=== PATIENT | female | born 1930 | race Caucasian/White ===

== ENCOUNTER 2017-03-16 22:54 | Inpatient (IN) | payer MEDICARE ==
[2017-03-16 23:57] LABS: INR-International Normal Ratio 1.9
[2017-03-16 23:58] LABS: Hemoglobin 5.1 g/dL (12.0-16.0); PTT 40.3 SEC (22.9-36.1)
[2017-03-17 00:04] LABS: ALT (SGPT) 360 U/L (8-55); AST (SGOT) 179 U/L (5-34); Albumin 3.4 g/dL (3.4-4.8); Alkaline Phosphatase 94 U/L (40-150); Anion Gap 12 mmol/L (10-20); BUN (Urea Nitrogen) 36 mg/dL (9.8-20.1); Bilirubin, Total 1.3 mg/dL (0.2-1.2); Calc. Creatinine Clearance 0 mL/min (70-130); Calcium 9.4 mg/dL (7.8-10.44); Carbon Dioxide 36 mmol/L (23-31); Chloride 102 mmol/L (98-107); Estimated GFR-MDRD 42; Globulin 3.1 g/dL (2.4-3.5); Glucose 113 mg/dL (83-110); Potassium 3.7 mmol/L (3.5-5.1); Protein, Total 6.5 g/dL (6.0-8.3); Sodium 146 mmol/L (136-145)
[2017-03-17 00:08] LABS: CKMB 1.5 ng/mL (0-6.6); Troponin I 0.116 ng/mL (< 0.028)
[2017-03-17 00:18] LABS: Anisocytosis SLIGHT = 6-15 cells (100X) (0-5/hpf); Band 1 % (5-11); Elliptocytes SLIGHT = 2-5 cells (100X) (0-1/hpf); Hypochromia MODERATE=16-30 cells (100X) (0-5/hpf); Lymphocytes 29 % (21-51); MDiff Complete? YES; Mean Corpuscular HGB CONC 25.1 g/dL (32.0-36.0); Mean Corpuscular Hemoglobin 16.7 pg (27.0-31.0); Mean Corpuscular Volume 66.5 fl (81.0-99.0); Mean Platelet Volume 8.8 fL (7.4-10.4); Microcytosis MODERATE=15-30 cells (100X) (0-5/hpf); Monocytes 19 % (0-10); Neutrophil 51 % (42-75); Nucleated RBC 1 % (0); PLT Morphology Comment Appears Adequate; Platelet Count 232 thou/uL (130-400); RBC Distribution Width 19.8 % (11.5-14.5); Red Blood Cell (RBC) Count 3.03 mill/uL (4.20-5.40); Reflex for Review?? YES; White Blood Cell (WBC) Count 4.1 thou/uL (4.8-10.8)
[2017-03-17 00:39] LABS: CK (CPK) 35 U/L (29-168); Lipase 66 U/L (8-78)
[2017-03-17] MEDS ORDERED: Pantoprazole 40 MG VIAL ONE (00:55)
[2017-03-17 04:28] LABS: Bilirubin Negative (Negative); Blood, Urine Negative (Negative); Clarity CLEAR (Clear); Glucose, Urine (Dipstick) Negative (Negative); Leukocyte Small (Negative); Nitrite Negative (Negative); Protein, Urine (Dipstick) Negative (Neg-Trace); Specific Gravity, Urine 1.011 (1.002-1.036); Urobilinogen 0.2 mg/dL (0.2-1.0)
[2017-03-17 04:30] LABS: Bacteria/HPF None Seen HPF (None Seen); Hyaline Casts/LPF 0-3 HYALINE CAST LPF (0-3 Hyaline); Pathc Cast-AUWi Flag 0.27 (0-2.49); RBC/HPF None Seen HPF (0-3); Squamous Epithelial None Seen HPF (0-3)
[2017-03-17 05:27] LABS: Reticulocyte Count 0.9 % (0.5-1.5)
[2017-03-17] MEDS ORDERED: Oseltamivir 75 MG CAP PO SCH (07:30)
[2017-03-17] MEDS ORDERED: Potassium Chloride 20 MEQ TAB PO SCH (07:30)
[2017-03-17] MEDS ORDERED: Furosemide 40 MG TAB PO SCH (07:30)
[2017-03-17] MEDS ORDERED: Loratadine 10 MG TAB PO SCH (07:30)
[2017-03-17] MEDS ORDERED: Atorvastatin Calcium 20 MG TAB PO SCH (07:30)
[2017-03-17] MEDS ORDERED: Digoxin 0.125 MG TAB PO SCH (07:30)
[2017-03-17 07:50] LABS: Troponin I 0.117 ng/mL (< 0.028)
[2017-03-17] MEDS ORDERED: Acetaminophen 650 MG Suppository PR PRN (08:27)
[2017-03-17] MEDS ORDERED: Acetaminophen 325 MG TAB PO PRN (08:27)
[2017-03-17 09:23] LABS: Iron 9 ug/dL (50-170); Iron Binding Capacity, Total 328 mcg/dL (265-497)
--- NOTE | 2017-03-17 09:38 | HP ---
PRIMARY CARE PHYSICIAN: Tim Carpenter M.D. CHIEF COMPLAINT: Low hemoglobin. HISTORY OF PRESENT ILLNESS: Ms. Sheikh is a pleasant 86-year-old lady who was seen at [facility] after she was sent here from [facility]. She is able to provide some history. Collateral history was obtained from review of medical records as well as discussion with emergency room physician. She is currently being treated for influenza B with Tamiflu, since 03/12/2017. She had blood work do ne on 03/15/2017, which showed hemoglobin of 4.4. She reports generalized weakness. She denies any blood in her ostomy bag. She denies any fevers or chills. She denies any chest pain. She does report shortness of breath with exertion. She denies a ny abdominal pain. She denies any nausea or vomiting. She also reports occasional cough that is nonproductive. REVIEW OF SYSTEMS: The following complete review of systems was negative, unless otherwise mentioned in the HPI or below: Constitutional: Weight loss or gain, ability to conduct usual activities. Skin: Rash, itching. Eyes: Double vision, pain. ENT/Mouth: Nose bleeding, neck stiffness, pain, tenderness. Cardiovascular: Palpitations, dyspnea on exertion, orthopnea. Respiratory: Shortness of breath, wheezing, cough, hemoptysis, fever or night sweats. Gastrointestinal: Poor appetite, abdominal pain, heartburn, nausea, vomiting, constipation, or diarr hea. Genitourinary: Urgency, frequency, dysuria, nocturia. Musculoskeletal: Pain, swelling. Neurologic/Psychiatric: Anxiety, depression. Allergy/Immunologic: Skin rash, bleeding tendency. PAST MEDICAL HISTORY: Significant for chronic atrial fibrillation with sick sinus syndrome on chroni c anticoagulation, status post permanent pacemaker placed in 2005, severe mitral insufficiency, hyper tension, chronic hypokalemia, diet controlled diabetes mellitus type 2, chronic venous insufficiency of the lower extremities, peripheral neuropathy of the lower extremities, left breast cancer status p ost lumpectomy and axillary node dissection, dyslipidemia and perforated sigmoid colon with abscess a nd peritonitis. PAST SURGICAL HISTORY: Significant for permanent pacemaker placement, left breast lumpectomy and axi llary node dissection, exploratory laparotomy with colectomy and colostomy on 09/17/2016. SOCIAL HISTORY: The patient lives at [facility]. She denies tobacco use, alcohol use or recreational drug use. FAMILY HISTORY: She denies any family history of coronary artery disease. CODE STATUS: She has an out of hospital DNR. I confirmed code status and she confirms that she is D NR. ALLERGIES: IODINE and IODINE CONTAINING PRODUCTS. CURRENT MEDICATIONS: Include Tamiflu 75 mg 2 times a day, Claritin 10 mg daily, digoxin 125 mcg ashvin y, Lasix 40 mg daily, Lipitor 20 mg daily, Protonix 40 mg daily, Zoloft 50 mg daily, vitamin p.r.n., Eliquis 2.5 mg 2 times a day, probiotic 2 times a day, potassium chloride 20 mEq 3 times a day, natur al balance ophthalmic eyedrops to each eye 3 times a day. PHYSICAL EXAMINATION: GENERAL: On examination, Ms. Sheikh is awake and alert, not in acute distress. VITAL SIGNS: Blood pressure is 149/63, pulse is 70, she is breathing at rate of 17 and saturating 97 % on 2 liters of oxygen. She is afebrile. EYES: She has purulent discharge in both eyes, worse on the right, with matting of the eyelashes and sticking of the eyelids. She has bilateral conjunctival erythema. Visual acuity is preserved in gogo th sides. ENT: Moist mucosal membranes. No oropharyngeal erythema or exudates. NECK: Supple, nontender, normal range of movement. Trachea is midline. RESPIRATORY: Accessory muscles of breathing are not active. Chest wall movements are symmetric bila terally. LUNGS: Clear to auscultation without wheeze, rhonchi or crepitations. CARDIOVASCULAR: S1 and S2 are heard, regular. Peripheral pulses palpable. No carotid bruit, no per icardial rub. ABDOMEN: Soft, nontender, bowel sounds heard, she has a left-sided colostomy. She also has a midlin e abdominal scar. No hepatomegaly, no splenomegaly. NEUROLOGIC: Cranial nerves II-XII are intact. Deep tendon reflexes are 2+. MUSCULOSKELETAL: Power is 5/5 in all 4 extremities. SKIN: No rashes or subcutaneous nodules. She has edema of both lower extremities. PSYCHIATRIC: Normal mood, normal affect, patient is oriented to person, place, month and year. LYMPHATIC: No cervical lymphadenopathy. IMAGING DATA AND LABORATORY DATA: Ms. Sheikh's labs and investigations were reviewed. She had a 12-lead electrocardiogram, which shows electronic ventricular paced rhythm. Laboratory investigation s show white count of 4100, hemoglobin 5.1, platelet count 232,000, INR 1.9, sodium 146, normal potas sium of 3.7, elevated blood urea nitrogen of 36, elevated creatinine of 1.21, last known creatinine 0 .92 on 11/23/2016, elevated total bilirubin of 1.3, elevated AST of 179, elevated ALT of 360, normal alkaline phosphatase, normal creatinine kinase, indeterminate troponin I of 0.117, elevated BNP of 78 7 and normal lipase. Urinalysis is positive for a small amount of leukocyte esterase. ASSESSMENT AND PLAN: Ms. Sheikh is a pleasant 36-year-old lady who was seen at [facility] on 03/17/2017. Her problem list includes: 1. Symptomatic anemia: She has symptomatic microcytic anemia. The etiology is unclear at this time . She had a negative stool occult blood test in the emergency room. She also denies seeing any bloo d in the ostomy bag. Even though she is on anticoagulation, it is unclear whether this is gastrointe stinal bleed event. GI Service has been consulted. We will continue her Protonix for now. She is a lso recovering from influenza and the anemia and leukopenia could be sequelae of influenza infection. We will check iron studies as well as vitamin B12 and folate levels, since RDW is elevated as well. We will also check TSH. The patient is receiving transfusion as ordered by emergency room physicia n. 2. Acute kidney injury: Likely prerenal. We will provide gentle hydration and reassess. 3. Conjunctivitis: Bilateral. Vision is preserved. We will start patient on Neosporin eye drops. 4. Chronic obstructive pulmonary disease: Stable. 5. Chronic atrial fibrillation, status post permanent pacemaker placement. The patient is currently in a ventricular paced rhythm. She appears to be stable from that point of view. Apixaban is on ho ld, given her anemia at this time. 6. Mitral regurgitation, status post mitral valve repair in 2010, stable. 7. Hypertension: Monitor vital signs, titrate antihypertensives as needed. 8. Chronic hypokalemia: Check electrolytes, replace potassium as needed. Many thanks for allowing me to participate in your patient's care. Please feel free to contact me wi th any questions or concerns. LEVEL OF RISK: Moderate. LEVEL OF COMPLEXITY: Moderate.
[2017-03-17 09:51] LABS: Ferritin 20.45 ng/mL (10-291); Thyroid Stimulating Hormone 4.1285 uIU/mL (0.35-4.94)
--- NOTE | 2017-03-17 09:56 | RAD ---
SINGLE VIEW OF THE CHEST: COMPARISON: 11/23/16. HISTORY: Pulmonary edema. FINDINGS: A single view of the chest shows an enlarged cardiomediastinal silhouette. The pacemaker is unchange d in position. The patient is status post sternotomy. There is a small left pleural effusion. Incr eased interstitial lung markings are present. There is no evidence of consolidation. IMPRESSION: Cardiomegaly and small left pleural effusion. POS: [facility]
[2017-03-17] MEDS ORDERED: Neosporin Ophth Soln 10 ml Bottle L EYE SCH (13:00)
[2017-03-17 13:15] LABS: Hemoglobin 7.1 g/dL (12.0-16.0)
[2017-03-17 13:25] VITALS: BMI 22.0
[2017-03-17] MEDS: Neosporin Ophth Soln 10 ml Bottle R EYE SCH ×2 (13:50→13:51)
[2017-03-17] MEDS: NS 0.9% w/ 40 MEQ KCL 1,000 ML IV SCH (13:59)
[2017-03-17] MEDS: Ciprofloxacin 0.3% Ophth Drops 2.5 ml Bottle L EYE SCH ×6 (14:03→23:37)
[2017-03-17] MEDS: Ciprofloxacin 0.3% Ophth Drops 2.5 ml Bottle R EYE SCH ×6 (14:07→23:38)
--- NOTE | 2017-03-17 18:55 | CON ---
DATE OF CONSULTATION: 03/17/2017 REASON FOR CONSULTATION: Anemia. HISTORY OF PRESENT ILLNESS: Ms. Sheikh is an 86-year-old female who was admitted to the hospital from emergency room yesterday as she had outside lab with hemoglobin of 4.4. The patient was apparen tly in the [facility] at [place] when treated for the flu. The patient does not give much of the history. She is pretty sleepy right now. She denies any pain, melena, hematochezia or hematemes is. I called the patient's durable power of associate attorney, Kristen at [phone] just got message in answ [employer]. The nurses note the family is here earlier but they are going to return tomorrow. A pparently there has been no overt obvious bleeding. The patient, however, is on Eliquis. The patien t reports she does have a colostomy bag. The patient reports that this was placed in August at [facility]. She does not recall if she has had endoscopy. She is fairly sleepy and has difficulty staying awake. Further questions asked about NSAID use, iron use, prior transfusions ess entially when unanswered she could not recall. I was not able to complete a good history. She reall y could not recall most events. Presently, she is without pain. The nurses note she has been in no distress. REVIEW OF SYSTEMS: Not able to be obtained that from the ER was reviewed. PAST MEDICAL HISTORY: Chronic muscle weakness, venous insufficiency, colostomy.
--- NOTE | 2017-03-17 23:39 | CON ---
DATE OF CONSULTATION: 03/17/2017 REASON FOR CONSULTATION: Anemia, microcytic with iron deficiency. HISTORY OF PRESENT ILLNESS: Ms. Sheikh is an 86-year-old female who was transferred from the [facility] for a hemoglobin of 4. Apparently, she was recently tested positive fluid at a alf in [place] and they decided to treat her empirically. Talking with her [id number], she wa s pretty ill but has gotten better. Today, when I have seen her in the room, she has received some b lood. In the emergency room, she was transfused with 2 units of blood today and her hemoglobin had i ncreased from 5.1-7.1. The family notes there has been no history of overt bleeding at the nursing h ome and the patient denies any bleeding, although she is very somnolent and difficult to arouse. The patient's daughter notes that a few months ago, there were issues with vaginal bleeding and they wer e going to take her to the stave bolt equalizer for evaluation, but because of her frailty, the stave bolt equalizer could not get her on the table to perform a pelvic exam. Ultimately, it was decided that with her po or functional status, even if something significant was found, she would not be a candidate for surge ry and no exam was performed. Ultimately, she seems lately not to have any vaginal bleeding. She aranda s not had any melena or hematochezia as far as the jduejimg-fj-rul knows. She does not know about re cent problems with anemia. She does state that in August, she had a perforated colon, ended up having surgery at the [facility] with colostomy. Reviewing records from this hospital i n June, her hemoglobin was 13, in September it was 7.6, and looking through to October, it seems to hav e been running around 9. The patient's [id number] states that after that surgery in October, she really never got back to normal. She has been frail. She feels like this patient is giving up. She does not eat much and she continues to lose weight, has anorexia and refuses to eat often. PAST MEDICAL HISTORY: Chronic atrial fibrillation, sick sinus syndrome on chronic anticoagulation fo r about 10 years, pacemaker in 2005, mitral insufficiency, hypertension, chronic hypokalemia, type 2 diabetes, chronic venous insufficiency, peripheral neuropathy, prior breast cancer with lymph node di ssection and lumpectomy, dyslipidemia, perforated sigmoid colon with abscess and peritonitis just thi s past summer. Dr. Pulido is her senior health consultant. Dr. Carpenter is her primary physician. She has had colonoscopies i n the past at [facility] but had not had one in a very long time. Her [id number] recalls jasmin nging her, does not recall having any issues at that time. She does not recall her having ulcers or bleeding in the past. PAST SURGICAL HISTORY: Includes also a pacemaker placement, lumpectomy, and also the patient's daugh ter-in-law states that she had an aortic valve repair of some sort but not replacement. SOCIAL HISTORY: The patient lives in [facility]. She denies tobacco use, alcohol or d rug use. REVIEW OF SYSTEMS: Unable to be obtained from the patient. ALLERGIES: IODINE CONTAINING PRODUCTS. MEDICATIONS AT HOME: Terbinafine, sertraline, Florastor, K-Dur, Protonix, ranitidine, Lasix, Lanoxin , atorvastatin, Eliquis 2.5 mg p.o. b.i.d., acetaminophen, and apparently, she is finishing some Jacqueline flu. PRESENT MEDICATIONS: Tylenol, Cipro eyedrops, normal saline an hour. PHYSICAL EXAMINATION: VITAL SIGNS: Temperature 97, pulse 70, respirations 18, her O2 sat is 95% on 2 liters. GENERAL: The patient is somnolent. She is sleeping while I walked into the room and she is arousabl e. She tends to fall back to asleep. LUNGS: Clear with decreased breath sounds because she does not take deep breaths. HEART: Regular rate and rhythm, irregular at times. ABDOMEN: Soft and nontender without any palpable hepatosplenomegaly. There is a colostomy in the le ft lower quadrant without any evidence of blood. LABORATORY DATA: Stool was Hemoccult negative. MCV was 66, other labs per HPI, B12 was 2000. BUN i s 36, creatinine is 1.2, sodium 146, potassium 3.7, AST and ALT were 79 360. Total bilirubin is 1.3. Labs from October showed normal LFTs. ASSESSMENT AND PLAN: 1. Severe microcytic anemia on presentation with heme-negative stool. No signs of bleeding, which s he is on chronic anticoagulation. Per the family, there is a history of vaginal bleeding a few month s ago, this was evaluated by Gynecology. Ultimately, it was decided to do nothing not even exam vincenzo use it was felt that even if something was found surgically to be treated nothing could be done. The re have been no overt signs of gastrointestinal bleeding at this time. In talking with the patient's family, they are unsure if they even want to proceed with invasive studies and they are going to bernardino k about that and get back to us tomorrow. 2. History of colostomy secondary to perforation. 3. History of chronic anticoagulation. 4. The patient has mildly elevated liver function tests which were new compared to previous labs in October. We will go ahead and repeat those tomorrow. At this time, we will hold off on scheduling any intervention. I would go ahead and place her on her proton pump inhibitor, which has not been do ne at this point in time and we will reevaluate her tomorrow and see what the family has decided.
[2017-03-18] MEDS: Ciprofloxacin 0.3% Ophth Drops 2.5 ml Bottle L EYE SCH ×10 (02:10→18:01)
[2017-03-18] MEDS: Ciprofloxacin 0.3% Ophth Drops 2.5 ml Bottle R EYE SCH ×10 (02:11→18:01)
[2017-03-18 06:05] LABS: Anion Gap 12 mmol/L (10-20); BUN (Urea Nitrogen) 24 mg/dL (9.8-20.1); Calc. Creatinine Clearance 44 mL/min (70-130); Calcium 9.1 mg/dL (7.8-10.44); Carbon Dioxide 35 mmol/L (23-31); Chloride 104 mmol/L (98-107); Estimated GFR-MDRD 55; Glucose 78 mg/dL (83-110); Potassium 3.6 mmol/L (3.5-5.1); Sodium 147 mmol/L (136-145)
[2017-03-18 07:37] LABS: Acanthocytes SLIGHT = 1-5 cells (100X) (None Seen); Band 1 % (5-11); Eosinophils 1 % (0-10); Hypochromia MARKED = >30 cells (100X) (0-5/hpf); Lymphocytes 39 % (21-51); MDiff Complete? YES; Mean Corpuscular HGB CONC 26.9 g/dL (32.0-36.0); Mean Corpuscular Hemoglobin 19.7 pg (27.0-31.0); Mean Corpuscular Volume 73.2 fl (81.0-99.0); Mean Platelet Volume 10.1 fL (7.4-10.4); Microcytosis MODERATE=15-30 cells (100X) (0-5/hpf); Monocytes 15 % (0-10); Neutrophil 43 % (42-75); Nucleated RBC 2 % (0); PLT Morphology Comment Appears Adequate; Platelet Count 177 thou/uL (130-400); Polychromasia MODERATE = 3-4 cells (100X) (0-2/hpf); RBC Distribution Width 22.8 % (11.5-14.5); Reactive Lymphocytes 1 % (0-10); Red Blood Cell (RBC) Count 3.48 mill/uL (4.20-5.40); Schistocytes SLIGHT = 2-5 cells (100X) (0-1/hpf); White Blood Cell (WBC) Count 4.1 thou/uL (4.8-10.8)
[2017-03-18] MEDS ORDERED: Acetaminophen 325 MG TAB PO PRN (08:09)
[2017-03-18] MEDS ORDERED: Artificial Tears 18 DROP/0.9 ML EA EYE PRN (08:45)
[2017-03-18] MEDS ORDERED: Albuterol Sulfate 1.25 MG/3 ML NEB NEB PRN (08:45)
[2017-03-18 08:46] LABS: ALT (SGPT) 260 U/L (8-55); AST (SGOT) 127 U/L (5-34); Alkaline Phosphatase 80 U/L (40-150); Bilirubin, Direct 1.1 mg/dL (0.1-0.3); Bilirubin, Total 1.6 mg/dL (0.2-1.2); Protein, Total 5.6 g/dL (6.0-8.3)
[2017-03-18] MEDS ORDERED: Pantoprazole 40 MG VIAL IVP SCH (09:00)
[2017-03-18] MEDS: NS 0.9% w/ 40 MEQ KCL 1,000 ML IV SCH (09:02)
[2017-03-18] MEDS: Digoxin 0.125 MG TAB PO SCH (09:04)
[2017-03-18] MEDS: Furosemide 40 MG TAB PO SCH ×2 (09:05→20:21)
[2017-03-18] MEDS: Loratadine 10 MG TAB PO SCH (09:06)
[2017-03-18] MEDS: Potassium Chloride 20 MEQ TAB PO SCH ×3 (09:06→20:21)
[2017-03-18] MEDS: Saccharomyces boulardii 250 MG CAP PO SCH ×2 (09:07→20:20)
--- NOTE | 2017-03-18 13:07 | PRG ---
DATE OF SERVICE: 03/18/2017 HISTORY OF PRESENT ILLNESS: Ms. Sheikh is eating breakfast. Nurses note she has had no overt ble eding. The family came by and confirmed to the staff that they have decided not to proceed with endo scopy at this time and want to just discuss possibly stopping her anticoagulation. The patient is wi thout complaints. She is a little bit confused with some mild dementia. MEDICATONS: She continues Protonix. PHYSICAL EXAMINATION: VITAL SIGNS: Temperature is 97, pulse 69, blood pressure 143/66. ABDOMEN: Soft, nontender. LUNGS: Clear. She is eating breakfast. She has a colostomy with no blood. LABORATORY STUDIES: White count 4.1, hemoglobin 7, platelet count is 177. Occult blood from 018 was negative. ASSESSMENT: Anemia, microcytic on presentation, this is likely an iron deficiency anemia. She had b een on blood thinner for atrial fibrillation. The patient and family at this point have refused endo scopy for further evaluation. At this time we will sign off. If you need further assistance or care , please do not hesitate to contact me.
--- NOTE | 2017-03-18 16:08 | PDOC.PN ---
- Subjective Encounter Start Date: 03/18/17 Encounter Start Time: 12:30 Pt seen for followup re: anemia. Says she feels better. No chest pain, shortness of breath, fevers or chills. - Objective Resuscitation Status: Resuscitation Status DNR:Do Not Resuscitate MAR Reviewed: Yes Vital Signs & Weight: Vital Signs (12 hours) Temp Pulse Resp BP Pulse Ox 03/18/17 15:42 98.0 F 70 16 121/66 98 03/18/17 12:00 97.6 F 69 18 143/66 H 100 03/18/17 09:04 70 03/18/17 08:00 97.6 F 70 16 133/64 100 03/18/17 04:29 97.7 F 70 16 120/56 L 97 Weight Weight 144 lb 15.263 oz Result Diagrams: 03/18/17 04:45 03/18/17 04:45 EKG Reviewed by me: Yes (Tele: V-paced rhythm) Phys Exam - Physical Examination Constitutional: NAD HEENT: moist MMs Neck: supple Respiratory: clear to auscultation bilateral Cardiovascular: RRR Gastrointestinal: soft Neurological: moves all 4 limbs Psychiatric: normal affect Skin: no rash Dx/Plan (1) Anemia Code(s): D64.9 - ANEMIA, UNSPECIFIED Status: Acute (2) A-fib Code(s): I48.91 - UNSPECIFIED ATRIAL FIBRILLATION Status: Chronic (3) COPD (chronic obstructive pulmonary disease) Status: Chronic - Plan plan discussed w/ family * . family does not want any scope studies. Monitor blood counts. Pt will benefit from resuming anticoagulation in a few days time. May benefit from monitoring blood counts and transfusing pRBCs PRN. PIPE resolved Review of Systems - Review of Systems Respiratory: negative: Cough, Dry, Shortness of Breath, Hemoptysis, SOB with Excertion, Pleuritic Pain, Sputum, Wheezing Cardiovascular: negative: chest pain, palpitations, orthopnea, paroxysmal nocturnal dyspnea, edema, light headedness - Medications/Allergies Allergies/Adverse Reactions: Allergies Allergy/AdvReac Type Severity Reaction Status Date / Time iodine Allergy Rash Verified 09/25/16 15:39 Iodine and Iodide Containing Allergy Verified 09/25/16 15:41 Produc Medications: Current Medications Acetaminophen (Tylenol) 650 mg PO Q4H PRN PRN Reason: Headache/Fever or Pain Acetaminophen (Tylenol) 650 mg AL Q4H PRN PRN Reason: Headache/Fever or Pain Albuterol Sulfate (Albuterol Sulfate) 0.63 mg NEB Q4H PRN PRN Reason: SOB &/or Wheezing Artificial Tears (Tears Naturale) 1 drop EA EYE TIDPRN PRN PRN Reason: DRY EYES Atorvastatin Calcium (Lipitor) 20 mg PO HS [facility] Ciprofloxacin (Ciloxan 0.3% Ophth Soln) 1 drop L EYE Q2HR [facility] Last Admin: 03/18/17 15:11 Dose: 1 drop Ciprofloxacin (Ciloxan 0.3% Ophth Soln) 1 drop R EYE Q2HR [facility] Last Admin: 03/18/17 15:11 Dose: 1 drop Digoxin (Lanoxin) 0.125 mg PO DAILY [facility] Last Admin: 03/18/17 09:04 Dose: 0.125 mg Furosemide (Lasix) 40 mg PO BID [facility] Last Admin: 03/18/17 09:05 Dose: 40 mg Potassium Chloride/Sodium Chloride (Ns 0.9% W/ 40 Meq Kcl) 1,000 mls @ 50 mls/ hr IV .Q20H [facility] Last Admin: 03/18/17 09:02 Dose: 1,000 mls Loratadine (Claritin) 10 mg PO DAILY [facility] Last Admin: 03/18/17 09:06 Dose: 10 mg Pantoprazole Sodium (Protonix) 40 mg PO DAILY [facility] Last Admin: 03/18/17 09:06 Dose: 40 mg Potassium Chloride (K-Dur) 20 meq PO TID [facility] Last Admin: 03/18/17 15:11 Dose: 20 meq Saccharomyces Boulardii (Florastor) 250 mg PO BID [facility] Last Admin: 03/18/17 09:07 Dose: 250 mg Sertraline HCl (Zoloft) 50 mg PO DAILY [facility] Last Admin: 03/18/17 09:07 Dose: 50 mg Terbinafine HCl (Lamisil At 1% Cream) 0 gm TOP DAILY [facility] Last Admin: 03/18/17 10:54 Dose: Not Given
[2017-03-18] MEDS: Atorvastatin Calcium 20 MG TAB PO SCH (20:21)
[2017-03-18] MEDS: CIPROFLOXACIN 0.3% FS SCH ×3 (20:21→23:53)
[2017-03-19] MEDS: CIPROFLOXACIN 0.3% FS SCH ×11 (02:13→22:21)
[2017-03-19 05:26] LABS: Anion Gap 11 mmol/L (10-20); BUN (Urea Nitrogen) 22 mg/dL (9.8-20.1); Calc. Creatinine Clearance 51 mL/min (70-130); Calcium 9.1 mg/dL (7.8-10.44); Carbon Dioxide 35 mmol/L (23-31); Chloride 99 mmol/L (98-107); Estimated GFR-MDRD 64; Glucose 106 mg/dL (83-110); Potassium 3.5 mmol/L (3.5-5.1); Sodium 141 mmol/L (136-145)
[2017-03-19 05:44] LABS: #Eosinphils 0.1 thou/uL (0.0-0.7); #Lymphocytes 1.7 thou/uL (1.20-3.40); #Monocytes 0.7 thou/uL (0.11-0.59); #Neutrophils 1.9 thou/uL (1.40-6.50); %Basophils 0.6 % (0.0-1.0); %Eosinophils 3.1 % (0.0-10.0); %Lymphocytes 37.8 % (21.0-51.0); %Monocytes 14.9 % (0.0-10.0); %Neutrophils 43.6 % (42.0-75.0); Anisocytosis SLIGHT = 6-15 cells (100X) (0-5/hpf); Elliptocytes SLIGHT = 2-5 cells (100X) (0-1/hpf); Hemoglobin 7.1 g/dL (12.0-16.0); Hypochromia MODERATE=16-30 cells (100X) (0-5/hpf); MDiff Complete? YES; Mean Corpuscular HGB CONC 27.7 g/dL (32.0-36.0); Mean Corpuscular Hemoglobin 20.4 pg (27.0-31.0); Mean Corpuscular Volume 73.6 fl (81.0-99.0); Mean Platelet Volume 8.7 fL (7.4-10.4); Microcytosis SLIGHT = 6-15 cells (100X) (0-5/hpf); Platelet Count 171 thou/uL (130-400); RBC Distribution Width 23.8 % (11.5-14.5); Red Blood Cell (RBC) Count 3.46 mill/uL (4.20-5.40); Tear Drops SLIGHT = 2-5 cells (100X) (0-1/hpf); White Blood Cell (WBC) Count 4.4 thou/uL (4.8-10.8)
[2017-03-19] MEDS: NS 0.9% w/ 40 MEQ KCL 1,000 ML IV SCH ×2 (09:03→21:25)
[2017-03-19] MEDS: Furosemide 40 MG TAB PO SCH ×2 (09:05→21:43)
[2017-03-19] MEDS: Digoxin 0.125 MG TAB PO SCH (09:05)
[2017-03-19] MEDS: Loratadine 10 MG TAB PO SCH (09:06)
[2017-03-19] MEDS: Potassium Chloride 20 MEQ TAB PO SCH ×3 (09:07→21:43)
[2017-03-19] MEDS: Saccharomyces boulardii 250 MG CAP PO SCH ×2 (09:08→21:43)
--- NOTE | 2017-03-19 11:29 | PDOC.PN ---
- Subjective Encounter Start Date: 03/19/17 Encounter Start Time: 07:00 Pt seen for followup re: anemia. Denies chest pain, shortness of breath, fevers or chills. - Objective Resuscitation Status: Resuscitation Status DNR:Do Not Resuscitate MAR Reviewed: Yes Vital Signs & Weight: Vital Signs (12 hours) Temp Pulse Resp BP Pulse Ox 03/19/17 09:05 70 03/19/17 08:00 97.6 F 70 18 93 L 03/19/17 07:51 97.6 F 70 18 122/63 93 L 03/19/17 04:00 96.9 F L 70 16 132/60 98 03/18/17 23:40 97.2 F L 70 16 121/57 L 95 Weight Weight 144 lb 15.263 oz Result Diagrams: 03/19/17 04:37 03/19/17 04:37 Additional Labs: Accuchecks 03/19/17 03/19/17 03/18/17 10:54 05:52 21:26 POC Glucose 139 H 123 H 127 H 03/18/17 17:28 POC Glucose 151 H EKG Reviewed by me: Yes (Tele: V-paced) Phys Exam - Physical Examination Constitutional: NAD HEENT: moist MMs Neck: supple Respiratory: clear to auscultation bilateral Cardiovascular: RRR Gastrointestinal: soft Neurological: moves all 4 limbs Psychiatric: normal affect Dx/Plan (1) Anemia Code(s): D64.9 - ANEMIA, UNSPECIFIED Status: Acute (2) A-fib Code(s): I48.91 - UNSPECIFIED ATRIAL FIBRILLATION Status: Chronic (3) COPD (chronic obstructive pulmonary disease) Status: Chronic - Plan PT/OT, out of bed/ambulate * Still needing supplemental oxygen, will try to wean her off * Off of anticoagulation at this time. * Ambulate patient. Review of Systems - Review of Systems Respiratory: negative: Cough, Dry, Shortness of Breath, Hemoptysis, SOB with Excertion, Pleuritic Pain, Sputum, Wheezing Cardiovascular: negative: chest pain, palpitations, orthopnea, paroxysmal nocturnal dyspnea, edema, light headedness - Medications/Allergies Allergies/Adverse Reactions: Allergies Allergy/AdvReac Type Severity Reaction Status Date / Time iodine Allergy Rash Verified 09/25/16 15:39 Iodine and Iodide Containing Allergy Verified 09/25/16 15:41 Produc Medications: Current Medications Acetaminophen (Tylenol) 650 mg PO Q4H PRN PRN Reason: Headache/Fever or Pain Acetaminophen (Tylenol) 650 mg WA Q4H PRN PRN Reason: Headache/Fever or Pain Albuterol Sulfate (Albuterol Sulfate) 0.63 mg NEB Q4H PRN PRN Reason: SOB &/or Wheezing Artificial Tears (Tears Naturale) 1 drop EA EYE TIDPRN PRN PRN Reason: DRY EYES Atorvastatin Calcium (Lipitor) 20 mg PO HS [facility] Last Admin: 03/18/17 20:21 Dose: 20 mg Digoxin (Lanoxin) 0.125 mg PO DAILY [facility] Last Admin: 03/19/17 09:05 Dose: 0.125 mg Furosemide (Lasix) 40 mg PO BID [facility] Last Admin: 03/19/17 09:05 Dose: 40 mg Potassium Chloride/Sodium Chloride (Ns 0.9% W/ 40 Meq Kcl) 1,000 mls @ 50 mls/ hr IV .Q20H [facility] Last Admin: 03/19/17 09:03 Dose: 1,000 mls Loratadine (Claritin) 10 mg PO DAILY [facility] Last Admin: 03/19/17 09:06 Dose: 10 mg Ciprofloxacin 0.3% Ophth Drops 5 Ml Bottle 1 each FS Q2HR [facility] Last Admin: 03/19/17 09:04 Dose: 1 each Pantoprazole Sodium (Protonix) 40 mg PO DAILY [facility] Last Admin: 03/19/17 09:06 Dose: 40 mg Potassium Chloride (K-Dur) 20 meq PO TID [facility] Last Admin: 03/19/17 09:07 Dose: 20 meq Saccharomyces Boulardii (Florastor) 250 mg PO BID [facility] Last Admin: 03/19/17 09:08 Dose: 250 mg Sertraline HCl (Zoloft) 50 mg PO DAILY [facility] Last Admin: 03/19/17 09:08 Dose: 50 mg Terbinafine HCl (Lamisil At 1% Cream) 0 gm TOP DAILY [facility] Last Admin: 03/19/17 10:44 Dose: Not Given
[2017-03-19] MEDS: Atorvastatin Calcium 20 MG TAB PO SCH (21:43)
[2017-03-20] MEDS: CIPROFLOXACIN 0.3% FS SCH ×12 (00:36→22:37)
[2017-03-20] MEDS: NS 0.9% w/ 40 MEQ KCL 1,000 ML IV SCH ×2 (05:50→15:42)
[2017-03-20 06:05] LABS: Anion Gap 12 mmol/L (10-20); BUN (Urea Nitrogen) 16 mg/dL (9.8-20.1); Calc. Creatinine Clearance 50 mL/min (70-130); Carbon Dioxide 36 mmol/L (23-31); Chloride 100 mmol/L (98-107); Estimated GFR-MDRD 66; Glucose 99 mg/dL (83-110); Potassium 3.6 mmol/L (3.5-5.1); Sodium 144 mmol/L (136-145)
[2017-03-20 07:33] LABS: #Eosinphils 0.1 thou/uL (0.0-0.7); #Lymphocytes 1.7 thou/uL (1.20-3.40); #Monocytes 0.7 thou/uL (0.11-0.59); #Neutrophils 2.1 thou/uL (1.40-6.50); %Basophils 0.3 % (0.0-1.0); %Lymphocytes 36.1 % (21.0-51.0); %Monocytes 14.2 % (0.0-10.0); %Neutrophils 46.3 % (42.0-75.0); Bite Cells SLIGHT = 2-5 cells (100X) (0-1/hpf); Hemoglobin 7.3 g/dL (12.0-16.0); Hypochromia MODERATE=16-30 cells (100X) (0-5/hpf); MDiff Complete? YES; Mean Corpuscular HGB CONC 27.5 g/dL (32.0-36.0); Mean Corpuscular Hemoglobin 20.2 pg (27.0-31.0); Mean Corpuscular Volume 73.4 fl (81.0-99.0); Mean Platelet Volume 11.8 fL (7.4-10.4); Microcytosis MODERATE=15-30 cells (100X) (0-5/hpf); Ovalocytes MODERATE= 6-15 cells (100X) (0-1/hpf); PLT Morphology Comment Appears Adequate; Platelet Count 191 thou/uL (130-400); Polychromasia MODERATE = 3-4 cells (100X) (0-2/hpf); RBC Distribution Width 24.9 % (11.5-14.5); Red Blood Cell (RBC) Count 3.59 mill/uL (4.20-5.40); Schistocytes MODERATE= 6-15 cells (100X) (0-1/hpf); White Blood Cell (WBC) Count 4.6 thou/uL (4.8-10.8)
[2017-03-20] MEDS: Digoxin 0.125 MG TAB PO SCH (08:55)
[2017-03-20] MEDS: Saccharomyces boulardii 250 MG CAP PO SCH ×2 (08:55→20:53)
[2017-03-20] MEDS: Loratadine 10 MG TAB PO SCH (08:55)
[2017-03-20] MEDS: Furosemide 40 MG TAB PO SCH ×2 (08:55→20:53)
[2017-03-20] MEDS: Potassium Chloride 20 MEQ TAB PO SCH ×3 (08:56→20:53)
--- NOTE | 2017-03-20 11:41 | PDOC.PN ---
- Subjective Encounter Start Date: 03/20/17 Encounter Start Time: 07:00 Pt seen for followup re: anemia. Denies chest pain or shortness of breath. - Objective Resuscitation Status: Resuscitation Status DNR:Do Not Resuscitate MAR Reviewed: Yes Vital Signs & Weight: Vital Signs (12 hours) Temp Pulse Resp BP Pulse Ox 03/20/17 08:55 69 03/20/17 08:00 98.2 F 69 18 107/55 L 93 L 03/20/17 03:45 98.3 F 70 20 112/63 97 03/19/17 23:43 97.1 F L 70 16 126/63 98 Weight Weight 140 lb 4.8 oz I&O: 03/19/17 03/20/17 03/21/17 06:59 06:59 06:59 Intake Total 1030 Output Total 100 Balance 930 Result Diagrams: 03/20/17 05:37 03/20/17 05:37 Additional Labs: Accuchecks 03/20/17 03/20/17 03/19/17 10:59 05:53 21:29 POC Glucose 141 H 108 121 H 03/19/17 16:18 POC Glucose 114 H EKG Reviewed by me: Yes (Tele: V-paced) Phys Exam - Physical Examination Constitutional: NAD HEENT: moist MMs Neck: supple Respiratory: clear to auscultation bilateral Cardiovascular: RRR Gastrointestinal: soft Neurological: moves all 4 limbs Psychiatric: normal affect Dx/Plan (1) Anemia Code(s): D64.9 - ANEMIA, UNSPECIFIED Status: Acute (2) A-fib Code(s): I48.91 - UNSPECIFIED ATRIAL FIBRILLATION Status: Chronic (3) COPD (chronic obstructive pulmonary disease) Status: Chronic - Plan PT/OT, out of bed/ambulate * . Pt still needing supplemental oxygen. Transfuse pRBC to improve hypoxia. Likely home 24-48 hrs. Plan is to monitor hemoglobin as outpt and transfuse as needed. Pt to resume anticoagulation in a few days. Review of Systems - Review of Systems Cardiovascular: negative: chest pain, palpitations, orthopnea, paroxysmal nocturnal dyspnea, edema, light headedness, other Gastrointestinal: negative: Nausea, Vomiting, Abdominal Pain, Diarrhea, Constipation, Melena, Hematochezia - Medications/Allergies Allergies/Adverse Reactions: Allergies Allergy/AdvReac Type Severity Reaction Status Date / Time iodine Allergy Rash Verified 09/25/16 15:39 Iodine and Iodide Containing Allergy Verified 09/25/16 15:41 Produc Medications: Current Medications Acetaminophen (Tylenol) 650 mg PO Q4H PRN PRN Reason: Headache/Fever or Pain Acetaminophen (Tylenol) 650 mg FL Q4H PRN PRN Reason: Headache/Fever or Pain Albuterol Sulfate (Albuterol Sulfate) 0.63 mg NEB Q4H PRN PRN Reason: SOB &/or Wheezing Artificial Tears (Tears Naturale) 1 drop EA EYE TIDPRN PRN PRN Reason: DRY EYES Atorvastatin Calcium (Lipitor) 20 mg PO HS [facility] Last Admin: 03/19/17 21:43 Dose: 20 mg Digoxin (Lanoxin) 0.125 mg PO DAILY [facility] Last Admin: 03/20/17 08:55 Dose: 0.125 mg Furosemide (Lasix) 40 mg PO BID [facility] Last Admin: 03/20/17 08:55 Dose: 40 mg Potassium Chloride/Sodium Chloride (Ns 0.9% W/ 40 Meq Kcl) 1,000 mls @ 50 mls/ hr IV .Q20H [facility] Last Admin: 03/20/17 05:50 Dose: 1,000 mls Loratadine (Claritin) 10 mg PO DAILY [facility] Last Admin: 03/20/17 08:55 Dose: 10 mg Ciprofloxacin 0.3% Ophth Drops 5 Ml Bottle 1 each FS Q2HR [facility] Last Admin: 03/20/17 11:11 Dose: 1 each Pantoprazole Sodium (Protonix) 40 mg PO DAILY [facility] Last Admin: 03/20/17 08:55 Dose: 40 mg Potassium Chloride (K-Dur) 20 meq PO TID [facility] Last Admin: 03/20/17 08:56 Dose: 20 meq Saccharomyces Boulardii (Florastor) 250 mg PO BID [facility] Last Admin: 03/20/17 08:55 Dose: 250 mg Sertraline HCl (Zoloft) 50 mg PO DAILY [facility] Last Admin: 03/20/17 08:55 Dose: 50 mg Terbinafine HCl (Lamisil At 1% Cream) 0 gm TOP DAILY [facility] Last Admin: 03/20/17 09:01 Dose: Not Given
[2017-03-20] MEDS: Atorvastatin Calcium 20 MG TAB PO SCH (20:53)
[2017-03-21] MEDS: CIPROFLOXACIN 0.3% FS SCH ×8 (00:18→13:39)
[2017-03-21] MEDS: NS 0.9% w/ 40 MEQ KCL 1,000 ML IV SCH (02:37)
[2017-03-21 06:01] LABS: Hemoglobin 8.9 g/dL (12.0-16.0)
[2017-03-21] MEDS: Digoxin 0.125 MG TAB PO SCH (08:35)
[2017-03-21] MEDS: Furosemide 40 MG TAB PO SCH (08:38)
[2017-03-21] MEDS: Potassium Chloride 20 MEQ TAB PO SCH (08:39)
[2017-03-21] MEDS: Loratadine 10 MG TAB PO SCH (08:39)
[2017-03-21] MEDS: Saccharomyces boulardii 250 MG CAP PO SCH (08:39)
--- NOTE | 2017-03-21 09:28 | PDOC.PN ---
- Subjective Encounter Start Date: 03/21/17 Encounter Start Time: 11:30 Subjective: Patient without complaint. No bleeding. No SOB. Weakness better. - Objective Resuscitation Status: Resuscitation Status DNR:Do Not Resuscitate MAR Reviewed: Yes Vital Signs & Weight: Vital Signs (12 hours) Temp Pulse Resp BP Pulse Ox 03/21/17 08:35 70 03/21/17 03:35 98.5 F 69 12 118/59 L 92 L 03/20/17 23:34 98.4 F 70 16 121/57 L 91 L Weight Weight 140 lb 4.8 oz I&O: 03/20/17 03/21/17 03/22/17 06:59 06:59 06:59 Intake Total 2970 Output Total 100 Balance 2870 Result Diagrams: 03/21/17 05:06 03/20/17 05:37 Additional Labs: Accuchecks 03/21/17 03/20/17 03/20/17 05:37 20:44 17:24 POC Glucose 99 120 H 115 H 03/20/17 10:59 POC Glucose 141 H Phys Exam - Physical Examination Constitutional: NAD HEENT: moist MMs Respiratory: no wheezing, no rales, no rhonchi, clear to auscultation bilateral Cardiovascular: no significant murmur, irregular Gastrointestinal: soft, positive bowel sounds Neurological: non-focal, moves all 4 limbs Psychiatric: normal affect, A&O x 3 Dx/Plan (1) Anemia due to acute blood loss Code(s): D62 - ACUTE POSTHEMORRHAGIC ANEMIA Status: Acute Comment: Much improved, stable for d/c, can discuss resuming anticoagulation with PCP or cardiology as outpatient (2) A-fib Code(s): I48.91 - UNSPECIFIED ATRIAL FIBRILLATION Status: Chronic (3) COPD (chronic obstructive pulmonary disease) Status: Chronic - Plan cont current plan of care D/C back to [facility] * . - Discharge Day Encounter end time: 11:45
[2017-03-21 12:00] VITALS: TEMP 97.6
[2017-03-21 12:16] VITALS: BP 136/61
--- NOTE | 2017-03-21 14:21 | DIS ---
PRIMARY CARE PHYSICIAN: Dr. Carpenter. ADMISSION DIAGNOSES: 1. Severe symptomatic anemia, microcytic. 2. Acute kidney injury. 3. Conjunctivitis. 4. Chronic obstructive pulmonary disease. 5. Chronic atrial fibrillation with pacemaker. 6. Hypertension. 7. Chronic hypokalemia. DISCHARGE DIAGNOSES: 1. Anemia due to blood loss, improved after transfusion. 2. Chronic atrial fibrillation. 3. Chronic obstructive pulmonary disease. 4. Conjunctivitis, resolved. 5. Acute kidney injury, resolved. PROCEDURES: None. CONSULTATIONS: Gastroenterology, Dr. Acevedo. PERTINENT LABORATORY DATA: Hemoglobin 4.4 on an outpatient blood work, 5.1 on admission here, up to 8.9 after few transfusions and stable. INR 1.9, creatinine 1.2 at admission, down to 0.82 at dischar . SUMMARY OF HOSPITAL COURSE: This is an 86-year-old lady with a history of chronic atrial fibrillatio n, previously on Coumadin, getting too high, so she was put on a direct oral anticoagulant. She was at [facility] for weakness. After being discharged from the hospital at [facility] ew months ago, she had increasing weakness and she also reported some bilateral eye pain. She had bl ood work done in the emergency room with the above results. She was sent to [facility], had transf usions initially getting up to the low 7, which was stable; however, she was still feeling a little b it weak and short of breath and she was given another transfusion to get her up in to the 8 and she w as asymptomatic after that. The patient did have some drops for her eyes, which improved eye pain an d redness. She had no blood in her ostomy during her hospitalization or any other sources of bleedin g identified. Dr. Acevedo with Gastroenterology was consulted. He did recommend doing an EGD and col onoscopy to look for sources of bleeding. After discussion with her daughter, the patient who stated she is a DNR determined that she did not want to have an endoscopy or further workup for this. Her oral anticoagulants has been discontinued and she is being discharged back to [facility]. She is to follow up with Dr. Carpenter about the possibility of ever restarting anticoagulants. DISCHARGE MANAGEMENT: Discharged back to [facility]. ACTIVITIES: As tolerated. DIET: Healthy heart, low sodium diet. THERAPY: Occupational and physical therapy, oxygen as needed, p.r.n. only. FOLLOWUP: Follow up with Dr. Carpenter in 7 days for hemoglobin recheck and to discuss whether she clifford ld ever go back on anticoagulation. DISCHARGE MEDICATIONS: 1. Ferrous sulfate 325 mg daily, 30 tablets dispensed. Resume all home medications except for her a nticoagulant. 2. Albuterol nebs 4 times a day. 3. Acetaminophen as needed. 4. Terbinafine 1 application daily to toenails. 5. Sertraline 50 mg daily. 6. Florastor 250 mg twice a day. 7. Potassium chloride 20 mEq 3 times a day. 8. Protonix 40 mg daily. 9. Loratadine 10 mg daily. 10. Furosemide 40 mg twice a day. 11. Digoxin 0.125 mg daily. 12. Natural Balance Tears eyedrops 3 times a day. 13. Atorvastatin 20 mg daily.
== END 2017-03-21 14:19 | DRG 812 ==
LOC: ERS 22:54 → ERHOLD 03-17 00:43 → 2SE 03-17 12:56
PROVIDERS: ADMIT Internal Medicine; ATTEND Internal Medicine
PROC: 30233N1 Transfusion of Nonautologous Red Blood Cells into Peripheral Vein, Percutaneous Approach (ICD-10-PCS; principal; 2017-03-17)
PROC: 30233N1 Transfusion of Nonautologous Red Blood Cells into Peripheral Vein, Percutaneous Approach (ICD-10-PCS; 2017-03-20)
DX: D62 Acute posthemorrhagic anemia (principal); N17.9 Acute kidney failure, unspecified; E11.42 Type 2 diabetes mellitus with diabetic polyneuropathy; I48.2 Chronic atrial fibrillation; J44.9 Chronic obstructive pulmonary disease, unspecified; J11.1 Influenza due to unidentified influenza virus with other respiratory manifestations; D50.0 Iron deficiency anemia secondary to blood loss (chronic); H10.9 Unspecified conjunctivitis; E87.6 Hypokalemia; I10 Essential (primary) hypertension; Z95.0 Presence of cardiac pacemaker; Z79.01 Long term (current) use of anticoagulants; Z66 Do not resuscitate; R63.0 Anorexia; Z68.22 Body mass index [BMI] 22.0-22.9, adult; Z93.3 Colostomy status; E78.5 Hyperlipidemia, unspecified; R09.02 Hypoxemia; I87.2 Venous insufficiency (chronic) (peripheral); I34.0 Nonrheumatic mitral (valve) insufficiency
CPT/HCPCS: 36415; 36416; 36430; 71045; 80048; 80053; 80076; 81003; 81015; 82274; 82550; 82553; 82607; 82728; 82746; 83540; 83550; 83690; 83880; 84443; 84484; 85014; 85018; 85025; 85046; 85060; 85610; 85730; 86850; 86900; 86901; 93005; 96374; C9113; G8978-GP-CL; G8979-GP-CK; P9016